=== PATIENT | male | born 1945 | race Caucasian/White ===

== ENCOUNTER 2018-06-16 09:23 | Emergency (ER) | payer MEDICARE ==
[2018-06-16] MEDS ORDERED: Sodium Chloride 0.9% 1000 ML 1,000 ML IV SCH (09:45)
[2018-06-16] MEDS ORDERED: Adacel Vial IM ONE ×2 (09:48→10:08)
--- NOTE | 2018-06-16 09:48 | ERPHSYRPT ---
- History of Present Illness Time Seen by Provider: 06/16/18 09:25 Source: patient, other (son) Exam Limitations: no limitations Physician History: Pt fell at home, injured his right hip, and the back of his head, denies LOC, severe headaches, chest pain, vomiting. His son was at home with him, but unable to help him up, he is unable to put weight on his right leg. He denies other injury or complaints. Timing/Duration: today Occured at: home Context: fall Quality: sharpness Hip Pain Location: hip (R) Severity of Pain-Max: severe Severity of Pain-Current: none Modifying Factors: Improves With: immobilization, movement Symptoms prior to fall: none Associated Symptoms: denies symptoms Allergies/Adverse Reactions: No Known Drug Allergies Allergy (Unverified 05/01/13 08:32) Home Medications: No Home Meds [No Home Meds] 1 ea UD 05/01/13 [History] Hx Influenza Vaccination/Date Given: No Hx Pneumococcal Vaccination/Date Given: No - Review of Systems Constitutional: Weakness, Weight Loss Eyes: No Symptoms Ears, Nose, & Throat: No Symptoms Respiratory: No Symptoms Cardiac: No Symptoms Abdominal/Gastrointestinal: No Symptoms Genitourinary Symptoms: No Symptoms Musculoskeletal: Other (right hip pain) Skin: No Symptoms Neurological: No Symptoms All Other Systems: Reviewed and Negative - Past Medical History Pertinent Past Medical History: Yes Neurological History: No Pertinent History ENT History: Cataracts Cardiac History: Hypertension Respiratory History: No Pertinent History Endocrine Medical History: No Pertinent History Musculoskeletal History: Fractures GI Medical History: No Pertinent History History: No Pertinent History Psycho-Social History: No Pertinent History Male Reproductive Disorders: No Pertinent History - Past Surgical History Past Surgical History: Yes Neuro Surgical History: No Pertinent History Cardiac: Angioplasty Respiratory: No Pertinent History Gastrointestinal: No Pertinent History Genitourinary: No Pertinent History Musculoskeletal: Orthopedic Surgery Male Surgical History: No Pertinent History Other Surgical History: lt leg surgery - Social History Smoking Status: Current every day smoker How long have you smoked: 40 years Exposure to second hand smoke: Yes Drug Use: none - Nursing Vital Signs Nursing Vital Signs: Initial Vital Signs Temperature 98 F 06/16/18 09:37 Pulse Rate 78 06/16/18 09:37 Respiratory Rate 18 06/16/18 09:37 Blood Pressure 115/87 06/16/18 09:37 O2 Sat by Pulse Oximetry 98 06/16/18 09:37 Pain Scale Pain Intensity 0 - Physical Exam General Appearance: no apparent distress Eye Exam: PERRL/EOMI, eyes nml inspection Ears, Nose, Throat Exam: dry mucous membranes Neck Exam: normal inspection, non-tender, supple, No JVD Respiratory Exam: normal breath sounds, lungs clear, airway intact, No chest tenderness Cardiovascular Exam: regular rate/rhythm, normal heart sounds, normal peripheral pulses, No murmur Gastrointestinal Exam: soft, normal bowel sounds, No tenderness, No distention, No mass, No guarding, No ecchymosis, No pulsatile mass, No rebound, No organomegaly Extremity Exam: other (right hip is rotated outward, leg is shortened, good distal pulses and sensation.) Peripheral Pulses: dorsalis-pedis (R): 2+, dorsalis-pedis (L): 2+ Neurologic Exam: alert, oriented x 3, cooperative, normal mood/affect Skin Exam: normal color, warm, dry, other (small superficial skin tear in right cubital fold.) Lymphatic Exam: No adenopathy SpO2 Interpretation: normal O2 Delivery: Room Air - Course Nursing assessment & vital signs reviewed: Yes EKG Interpreted by Me: RATE (74/min), NORMAL AXIS, NORMAL INTERVALS, Right Bundle Branch Block, Non-specific ST Changes - Radiology Exams Chest X-ray Interpretation: Interpreted by me, Negative, Other (No acute changes, COPD , RLL atelectasis, ) Right Hip X-ray Interpretation: Interpreted by me, Other (femoral neck fracture) - CT Exams Head CT Interpretation: Negative, Tele-radiologist Report Cervical Spine CT Interpretation: Negative, Tele-radiologist Report Ordered Tests: Active Orders 24 hr Category Date Time Status EKG-ER Only STAT Care 06/16/18 09:41 Active CERVICAL SPINE WO CONTRAST [CT] Stat Exams 06/16/18 09:42 Taken CHEST 1 VIEW (PORTABLE) Stat Exams 06/16/18 09:42 Taken HEAD WITHOUT CONTRAST [CT] Stat Exams 06/16/18 09:42 Taken HIP UNI (2V) INCL PEL IF DONE Stat Exams 06/16/18 09:43 Taken CBC W DIFF Stat Lab 06/16/18 09:45 Completed CMP Stat Lab 06/16/18 09:45 Completed Manual Differential NC Stat Lab 06/16/18 09:45 Completed PROTIME WITH INR Stat Lab 06/16/18 09:45 Completed PTT Stat Lab 06/16/18 09:45 Completed UA W/RFX UR CULTURE Stat Lab 06/16/18 09:42 Uncollected Medication Summary Generic Name Dose Route Start Last Admin Trade Name Freq PRN Reason Stop Dose Admin Sodium Chloride 1,000 mls @ 100 mls/hr 06/16/18 09:45 06/16/18 10:09 Sodium Chloride 0.9% 1000 Ml IV 07/16/18 09:44 100 mls/hr .Q10H CINDY Administration Discontinued Medications Generic Name Dose Route Start Last Admin Trade Name Freq PRN Reason Stop Dose Admin Diphtheria/Tetanus/Acell Pertussis 0.5 ml 06/16/18 09:48 06/16/18 10:09 Adacel Vial IM 06/16/18 09:49 0.5 ml .ONCE ONE Administration Diphtheria/Tetanus/Acell Pertussis Confirm 06/16/18 10:08 Adacel Vial Administered 06/16/18 10:09 Dose 0.5 ml IM .STK-MED ONE Lab/Rad Data: Laboratory Result Diagrams 06/16/18 09:45 06/16/18 09:45 Laboratory Results 06/16/18 06/16/18 06/16/18 Range/Units 09:45 09:45 09:45 WBC 10.2 (4.0-10.5) K/mm3 RBC 3.06 L (4.1-5.6) M/mm3 Hgb 8.0 L (12.5-18.0) gm/dl Hct 27.9 L (42-50) % MCV 91.2 (78-100) fl MCH 26.1 (26-32) pg MCHC 28.7 L (32-36) g/dl RDW 18.7 H (11.5-14.0) % Plt Count 410 (150-450) K/mm3 MPV 9.0 (6-9.5) fl Segmented Neutrophils 81 H (36.-66.) % Band Neutrophils 1 (0.0-2.0) % Lymphocytes (Manual) 15 L (24-44) % Monocytes (Manual) 2 (0.0-12.0) % Eosinophils (Manual) 1 (0.00-3.0) % Platelet Estimate NORMAL (NORMAL) RBC Morphology NORMAL PT 13.8 H (8.83-12.87) SECONDS INR 1.18 (0.8-3.0) APTT 34.3 (24.1-36.1) SECONDS Sodium 138 (137-145) mmol/L Potassium 3.8 (3.5-5.1) mmol/L Chloride 103 (98-107) mmol/L Carbon Dioxide 32 H (22-30) mmol/L Anion Gap 7.5 (5-15) MEQ/L BUN 17 (9-20) mg/dL Creatinine 0.60 L (0.66-1.25) mg/dL Estimated GFR > 60.0 ML/MIN Glucose 96 (74-106) mg/dL Calcium 10.9 H (8.4-10.2) mg/dL Total Bilirubin 0.40 (0.2-1.3) mg/dL AST 24 (17-59) U/L ALT 16 (0-50) U/L Alkaline Phosphatase 98 (38-126) U/L Serum Total Protein 6.2 L (6.3-8.2) g/dL Albumin 2.5 L (3.5-5.0) g/dL - Progress Progress: improved Progress Note: 06/16/18 12:39 We reviewed his test results, X rays and CT findings, called Dr Culp, Trauma surgeon in [facility][1], discussed his current condition and results, she agreed to transfer patient there to be evaluated and treated, patient and his son were informed and agreed, they understood all risks and benefits of this transfer, he has been stable for the transport. Counseled pt/family regarding: lab results, diagnosis, rad results - Departure Departure Disposition: Transfer ([facility] ED, Dr Culp) Clinical Impression: Femoral neck fracture Qualifiers: Encounter type: initial encounter Fracture type: closed Laterality: right Qualified Code(s): S72.001A - Fracture of unspecified part of neck of right femur, initial encounter for closed fracture Condition: Stable Critical Care Time: No Referrals: CORINNE BROWN [CONSULTING PHYSICIAN] - Instructions: Hip Fracture (DC)
[2018-06-16 09:52] LABS: Hematocrit 27.9 % (42-50); Mean Cell Volume 91.2 fl (78-100); Mean Corpuscular Hemoglobin 26.1 pg (26-32); Mean Corpuscular Hgb Concent. 28.7 g/dl (32-36); Platelet Count 410 K/mm3 (150-450); Red Blood Count 3.06 M/mm3 (4.1-5.6); Red Cell Distribution Width 18.7 % (11.5-14.0); White Blood Count 10.2 K/mm3 (4.0-10.5)
[2018-06-16] MEDS ORDERED: Sodium Chloride 0.9% 1000 ML 1,000 ML ONE (10:07)
[2018-06-16 10:08] LABS: INR 1.18 (0.8-3.0); PROTIME 13.8 SECONDS (8.83-12.87)
[2018-06-16 10:10] LABS: PTT 34.3 SECONDS (24.1-36.1)
[2018-06-16 10:12] LABS: ALBUMIN 2.5 g/dL (3.5-5.0); ALKALINE PHOSPHATASE 98 U/L (38-126); ANION GAP 7.5 MEQ/L (5-15); BLOOD UREA NITROGEN 17 mg/dL (9-20); CHLORIDE 103 mmol/L (98-107); Calcium 10.9 mg/dL (8.4-10.2); Carbon Dioxide 32 mmol/L (22-30); Glucose 96 mg/dL (74-106); Potassium 3.8 mmol/L (3.5-5.1); SGOT/AST 24 U/L (17-59); SGPT/ALT 16 U/L (0-50); SODIUM 138 mmol/L (137-145); Total Protein 6.2 g/dL (6.3-8.2)
[2018-06-16 11:15] LABS: BAND 1 % (0.0-2.0); Eosinophil 1 % (0.00-3.0); Lymphocytes 15 % (24-44); Monocyte 2 % (0.0-12.0); Neutrophils 81 % (36.-66.); Total Cells Counted 100
[2018-06-16 11:16] LABS: Platelet Estimate NORMAL (NORMAL)
[2018-06-16 12:32] VITALS: BP 112/60; PULSE 88; O2SAT 98
[2018-06-16] MEDS ORDERED: Zofran 4 MG/2 ML VIAL IV ONE (12:43)
[2018-06-16] MEDS ORDERED: SUBLIMAZE 100 MCG/2 ML IV ONE (12:43)
[2018-06-16] MEDS ORDERED: SUBLIMAZE 100 MCG/2 ML ONE (13:23)
[2018-06-16] MEDS ORDERED: Zofran 4 MG/2 ML VIAL ONE (13:23)
--- NOTE | 2018-06-16 19:49 | XRAY ---
Indication: Pain following fall. Multiple contiguous axial images obtained through the head without contrast. Comparison: None Images through the base the brain slightly degraded by motion artifact. Age-appropriate global atrophy and moderate periventricular degenerative microischemia bilaterally. No acute intracranial hemorrhage, abnormal extra-axial fluid collection, or mass effect. Fourth ventricle is midline without hydrocephalus. Bony calvarium intact. Moderate mucosal thickening of the right maxillary sinus and partial opacification of the right mastoid air cells both presumed inflammatory. Impression: Minimal motion artifact. Grossly nonacute senile brain. Incidental right maxillary sinus mucosal thickening and partial opacification of the right mastoid air cells both presumed inflammatory. Comment: Preliminary interpretation was made by [facility]. No discrepancy. CTDI 50.14
--- NOTE | 2018-06-16 19:51 | XRAY ---
Indication: Pain following fall. Multiple contiguous axial images obtained through the cervical spine. Sagittal and coronal reformatted images obtained. Comparison: None Axial images negative for acute fracture, suspicious bony lesions, or spinal canal stenosis. Age-related osteopenia and mild multilevel degenerative endplate spurring greatest at C5-C6. Sagittal and coronal reformatted images demonstrates C2-C6 disc space narrowing. No acute compression fracture, subluxation, or jumped facet. Normal-appearing craniocervical junction. Visualized noncontrasted soft tissues demonstrates scattered carotid calcifications bilaterally and biapical pulmonary emphysema with fibrosis/scarring. CT head reported separately. Impression: 1. Negative acute fracture/subluxation. 2. Osteopenia and multilevel degenerative changes. 3. Incidental pulmonary emphysema. Comment: Preliminary interpretation was made by [facility]. No discrepancy. CTDI 53.08
--- NOTE | 2018-06-16 19:53 | XRAY ---
Indication: Pain following fall. Comparison: None AP pelvis and 2 views of the right hip demonstrates mildly displaced femur neck fracture. Elsewhere osteopenia, lower lumbar degenerative changes, and scattered vascular calcifications. Irregular radiopacity overlies the right lower lumbar spine possibly external.
--- NOTE | 2018-06-16 19:53 | XRAY ---
Indication: Pain following fall. Comparison: None Portable chest demonstrates COPD with biapical fibrosis/scarring, right base infiltrate/atelectasis, and small right effusion. Heart is not enlarged. Bony thorax intact with osteopenia and degenerative changes.
== END 2018-06-16 13:30 | disposition short-term general hospital (02) ==
LOC: ED 09:23
DX: S72.001A Fracture of unspecified part of neck of right femur, initial encounter for closed fracture (principal); W19.XXXA Unspecified fall, initial encounter; Y92.009 Unspecified place in unspecified non-institutional (private) residence as the place of occurrence of the external cause; R07.9 Chest pain, unspecified; M25.551 Pain in right hip; Z79.899 Other long term (current) drug therapy; S51.011A Laceration without foreign body of right elbow, initial encounter; A35 Other tetanus; Z23 Encounter for immunization
CPT/HCPCS: 36415; 70450; 71045; 72125; 73502; 80053; 85025; 85610; 85730; 90471; 90715; 93005; 96360; 96361; 96374; 96375; 99285; J2405; J3010